=== PATIENT | male | born 1960 | race Caucasian/White ===

== ENCOUNTER → 2018-12-21 | Outpatient (CLI) | payer OTHER ==
[2018-12-21 11:52] LABS: CALCIUM 10.3 mg/dL (8.4-10.2); POTASSIUM 4.9 mmol/L (3.5-5.1); TOTAL BILIRUBIN 0.6 mg/dL (0.2-1.2); TOTAL PROTEIN 7.8 g/dL (6.4-8.3)
[2018-12-21 12:06] LABS: BASO # 0.1 (0.02-0.10); EOS # 0.4 (0.04-0.40); EOS % 2.7 % (0.0-4.0); HEMATOCRIT 56.1 % (42.0-52.0); HEMOGLOBIN 18.5 g/dL (13.5-18.0); LYMPH# 1.6 (1.50-4.00); MEAN CELL VOLUME 89 fl (78-100); MEAN CORPUSCULAR HEMOGLOBIN 29 pg (27-31); MEAN CORPUSCULAR HGB CONC 33 g/dL (33-37); MEAN PLATELET VOLUME 11.8 fl (7.4-10.4); MONO # 1.2 (0.20-0.80); PLATELET COUNT 416 K/mm3 (130-400); RED BLOOD COUNT 6.31 M/mm3 (4.20-5.60); RED CELL DISTRIBUTION WIDTH 14.3 % (11.5-14.5)
[2018-12-21 12:07] LABS: NEU # 9.8 (1.40-6.50)
[2018-12-21 12:29] LABS: ERYTHROCYTE SEDIMENTATION RATE 6 mm/hr (0-20)
== END ==
LOC: LAB 11:11
PROVIDERS: Internal Medicine
DX: Z12.5 Encounter for screening for malignant neoplasm of prostate (principal); I25.5 Ischemic cardiomyopathy

== ENCOUNTER 2018-12-27 17:13 | Emergency (ER) | payer OTHER ==
[~2018-12-27] VITALS: Ht 180.3 cm; Wt 60.5 kg
[2018-12-27 17:40] VITALS: BP 105/68
[2018-12-27] MEDS ORDERED: AMIODARONE200 MG PO (18:15)
[2018-12-27] MEDS ORDERED: ELIQUIS5 MG PO (18:15)
[2018-12-27] MEDS ORDERED: CHILDREN'S ASPI81 M1 PO (18:17)
[2018-12-27] MEDS ORDERED: ATORVASTATIN CA80 MG PO (18:17)
[2018-12-27] MEDS ORDERED: PANTOPRAZOLE SO40 MG PO (18:18)
[2018-12-27] MEDS ORDERED: NITROGLYCERIN0.4 M1 SL (18:19)
[2018-12-27] MEDS ORDERED: CARVEDILOL6.25 MG PO (18:21)
[2018-12-27] MEDS ORDERED: ALDACTONE 25MG25 MG PO (18:24)
[2018-12-27] MEDS ORDERED: TORSEMIDE20 M1 PO (18:24)
[2018-12-27] MEDS ORDERED: MIRALAX17 GM PO (18:29)
[2018-12-27] MEDS ORDERED: GOOD NEIGH1200 MG/15 PO (18:30)
[2018-12-27] MEDS ORDERED: COLACE100 M1 PO (18:30)
== END 2018-12-27 20:06 | disposition home or self-care (01) ==
LOC: ED 17:13
DX: K59.00 Constipation, unspecified (principal); I25.10 Atherosclerotic heart disease of native coronary artery without angina pectoris; Z95.0 Presence of cardiac pacemaker; Z87.891 Personal history of nicotine dependence

== ENCOUNTER → 2019-01-11 | Outpatient (CLI) | payer OTHER ==
[2018-12-27 17:40] VITALS: BP 105/68
[~2019-01-11] MED LIST: ALDACTONE 25MG25 MG PO; AMIODARONE200 MG PO; ATORVASTATIN CA80 MG PO; CARVEDILOL6.25 MG PO; CHILDREN'S ASPI81 M1 PO; COLACE100 M1 PO; ELIQUIS5 MG PO; GOOD NEIGH1200 MG/15 PO; MIRALAX17 GM PO; NITROGLYCERIN0.4 M1 SL; PANTOPRAZOLE SO40 MG PO; TORSEMIDE20 M1 PO
[2019-01-11 11:22] LABS: CALCIUM 9.7 mg/dL (8.3-10.5); POTASSIUM 4.3 mmol/L (3.5-5.1)
== END ==
LOC: LAB 10:45
PROVIDERS: Internal Medicine
DX: I50.21 Acute systolic (congestive) heart failure (principal); R79.89 Other specified abnormal findings of blood chemistry

== ENCOUNTER → 2019-03-19 | Outpatient (CLI) | payer OTHER ==
[2019-03-19 08:38] LABS: POTASSIUM 4.1 mmol/L (3.5-5.1)
[2019-03-19 08:39] LABS: CALCIUM 9.2 mg/dL (8.3-10.5)
[2019-03-19 08:41] LABS: TOTAL PROTEIN 7.2 g/dL (6.4-8.3)
[2019-03-19 08:42] LABS: TOTAL BILIRUBIN 0.9 mg/dL (0.2-1.2)
== END ==
LOC: LAB 08:18
PROVIDERS: Internal Medicine
DX: I25.5 Ischemic cardiomyopathy (principal); E78.5 Hyperlipidemia, unspecified

== ENCOUNTER → 2019-04-22 | Outpatient (CLI) | payer OTHER | LOC: LAB 08:58 | DX: I25.5 Ischemic cardiomyopathy (principal); I47.2 Ventricular tachycardia ==

== ENCOUNTER → 2019-12-30 | Outpatient (CLI) | payer OTHER ==
[2019-12-30 07:35] LABS: EOS # 0.2 (0.04-0.40); EOS % 1.8 % (0.0-4.0); HEMATOCRIT 43.2 % (42.0-52.0); HEMOGLOBIN 14.1 g/dL (13.5-18.0); LYMPH# 2.4 (1.50-4.00); MEAN CELL VOLUME 89 fl (78-100); MEAN CORPUSCULAR HEMOGLOBIN 29 pg (27-31); MEAN CORPUSCULAR HGB CONC 33 g/dL (33-37); MEAN PLATELET VOLUME 11.8 fl (7.4-10.4); MONO # 1.2 (0.20-0.80); NEU # 7.6 (1.40-6.50); PLATELET COUNT 276 K/mm3 (130-400); RED BLOOD COUNT 4.84 M/mm3 (4.20-5.60); RED CELL DISTRIBUTION WIDTH 13.5 % (11.5-14.5); WHITE BLOOD COUNT 11.4 K/mm3 (4.8-10.8)
[2019-12-30 07:46] LABS: POTASSIUM 3.9 mmol/L (3.5-5.1)
[2019-12-30 07:47] LABS: ALBUMIN 4.3 g/dL (3.5-5.0)
[2019-12-30 07:48] LABS: CALCIUM 9.5 mg/dL (8.3-10.5)
[2019-12-30 07:49] LABS: TOTAL PROTEIN 7.6 g/dL (6.4-8.3)
[2019-12-30 07:51] LABS: TOTAL BILIRUBIN 0.7 mg/dL (0.2-1.2)
[2019-12-30 07:55] LABS: MAGNESIUM 1.98 mg/dL (1.60-2.60)
[2019-12-30 08:55] LABS: ERYTHROCYTE SEDIMENTATION RATE 13 mm/hr (0-20)
== END ==
LOC: LAB 07:11
PROVIDERS: Internal Medicine Cardiovascular Disease
DX: Z00.00 Encounter for general adult medical examination without abnormal findings (principal); Z12.5 Encounter for screening for malignant neoplasm of prostate; Z12.11 Encounter for screening for malignant neoplasm of colon; I25.5 Ischemic cardiomyopathy